=== PATIENT | female | born 2000 | race Two or more races ===

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

== ENCOUNTER 2021-02-18 14:18 | Emergency (ER) | payer OTHER ==
[~2021-02-18] VITALS: Ht 160 cm; Wt 49.9 kg
[~2021-02-18 14:18] MED LIST: DOXYCYCLINE HY100 M2 PO; IBUPROFEN800 MG PO; KETO10TA2 PO
[2021-02-18] MEDS ORDERED: FOLIC ACID0.8 M1 PO (14:26)
== END 2021-02-18 18:04 | disposition home or self-care (01) ==
LOC: EMR PED 14:18 → ER 14:27 → EMR PED 14:27 → ER 18:04
DX: O26.851 Spotting complicating pregnancy, first trimester (principal); Z3A.01 Less than 8 weeks gestation of pregnancy

== ENCOUNTER 2021-02-24 21:16 | Emergency (ER) | payer OTHER ==
[~2021-02-24] VITALS: Ht 160 cm; Wt 53.1 kg
[~2021-02-24 21:16] MED LIST changes: +FOLIC ACID0.8 M1 PO
[2021-02-24] MEDS ORDERED: ENDOMETRIN100 MG (21:24)
[2021-02-25] MEDS ORDERED: CEPHALEXIN500 M1 PO (03:04)
[2021-02-25] MEDS ORDERED: PEPCID AC20 MG PO (03:04)
[2021-02-25] MEDS ORDERED: UNISOM25 MG PO (03:04)
[2021-02-25] MEDS ORDERED: ONDANSETRON HCL4 MG PO (03:04)
== END 2021-02-25 03:15 | disposition home or self-care (01) ==
LOC: EMR PED 21:16 → ER 21:20
DX: O21.0 Mild hyperemesis gravidarum (principal); Z3A.01 Less than 8 weeks gestation of pregnancy

== ENCOUNTER 2023-04-29 17:32 | Emergency (ER) | payer OTHER ==
[~2023-04-29] VITALS: Ht 157.5 cm; Wt 59.0 kg
[~2023-04-29 17:32] MED LIST changes: +CEPHALEXIN500 M1 PO; +ENDOMETRIN100 MG; +ONDANSETRON HCL4 MG PO; +PEPCID AC20 MG PO; +UNISOM25 MG PO
[2023-04-29 22:06] LABS: HEMATOCRIT 38.1 % (36.0-45.00); HEMOGLOBIN 12.5 g/dL (12.0-15.00); MEAN CORPUSCULAR HEMOGLOBIN 24.9 pg (27.00-32.0); MEAN CORPUSCULAR HGB CONC 32.8 g/dl (32.0-36.0); PLATELET COUNT 234 K/uL (150-450); RED BLOOD COUNT 5.02 M/uL (4.00-6.00)
[2023-04-29] MEDS ORDERED: QC TUSSIN DM L118 ML PO (23:29)
[2023-04-29] MEDS ORDERED: ZYRTEC10 MG PO (23:30)
[2023-04-29] MEDS ORDERED: MEDROLPACK PO (23:30)
== END 2023-04-30 00:53 | disposition home or self-care (01) ==
LOC: EMR PED 17:33 → ER 17:33 → EMR PED 18:20 → ER 18:20
PROVIDERS: Nurse Practitioner Family
DX: J00 Acute nasopharyngitis [common cold] (principal); Z20.822 Contact with and (suspected) exposure to COVID-19

== ENCOUNTER 2024-03-01 13:29 | Emergency (ER) | payer OTHER ==
[~2024-03-01] VITALS: Ht 160 cm; Wt 61.2 kg
[~2024-03-01 13:29] MED LIST changes: +MEDROLPACK PO; +QC TUSSIN DM L118 ML PO; +ZYRTEC10 MG PO
[2024-03-01 17:23] LABS: HEMATOCRIT 38.6 % (36.0-45.00); HEMOGLOBIN 12.7 g/dL (12.0-15.00); MEAN CELL VOLUME 79.1 fL (80.00-100.00); MEAN CORPUSCULAR HGB CONC 32.8 g/dl (32.0-36.0); PLATELET COUNT 260 K/uL (150-450); RED BLOOD COUNT 4.88 M/uL (4.00-6.00); RED CELL DISTRIBUTION WIDTH 14.6 % (11.5-14.5)
[2024-03-01 17:33] LABS: PH,URINE 6.5 (5.0-8.0); URINE APPEARANCE Cloudy; URINE BILIRRUBIN Negative (NEGATIVE); URINE BLOOD Negative; URINE COLOR Yellow; URINE GLUCOSE Negative (NEGATIVE); URINE KETONE Trace (NEGATIVE); URINE LEUKOCYTE Moderate; URINE NITRATE Negative; URINE PROTEIN Trace (NEGATIVE)
[2024-03-01 17:34] LABS: URINE BACTERIA 636.2 uL (0.0-1933); URINE EPITHELIAL CELLS 48.2 uL (0.0-38.8); URINE RBC 28.5 uL (0.0-20.8); URINE WBC 52.7 uL (0.0-23.2)
[2024-03-01 18:07] LABS: ALBUMIN 4.2 gm/dL (3.4-5.0); ALKALINE PHOSPHATASE 64 U/L (50-136); ALT/SGPT 14 U/L (12-78); ANION GAP 10 (10.0-20.0); AST/SGOT 12 U/L (15-37); BILIRUBIN TOTAL 1.35 mg/dL (0.3-1.2); BLOOD UREA NITROGEN 11 mg/dL (7-18); BUN CREA RATIO 13 (7.0-25.0); CALCIUM 9.3 mg/dL (8.5-10.1); CARBON DIOXIDE 28 mEq/L (21-32); CHLORIDE 106 mmol/L (98-107); CREATININE SERUM 0.86 mg/dL (0.55-1.02); GFR 82.51; GLOBULINA 3.5 G/DL (2.4-3.5); GLUCOSE FASTING 115 mg/dL (65-100); OSMOLALITY SERUM 280 MOSM/KG (275-295); POTASSIUM 3.76 mEq/L (3.5-5.1); SODIUM 140 mmol/L (136-145); TOTAL PROTEIN 7.7 gm/dL (6.4-8.2)
[2024-03-01 18:10] LABS: HCG QUANTITATIVE < 1 mUI/mL (1-3)
[2024-03-01] MEDS ORDERED: BACTRIM DS TAB1 EACH PO (19:10)
[2024-03-01] MEDS ORDERED: PEPCID AC20 MG PO (19:10)
== END 2024-03-01 20:10 | disposition home or self-care (01) ==
LOC: ER 13:29
PROVIDERS: General Practice
DX: R55 Syncope and collapse (principal); N39.0 Urinary tract infection, site not specified